=== PATIENT | male | born 1955 | race African-American/Black ===

== ENCOUNTER 2020-03-13 15:39 | Emergency (ER) | payer BC, SELFPAY ==
--- NOTE | ~2020-03-13 | XR_ITS ---
EXAMINATION: XR chest 1V portable INDICATION: Cough TECHNIQUE: Portable AP chest at 1612 hours COMPARISON: 06/05/2017 FINDINGS: The lungs are free of acute opacities. There is no pleural effusion or pneumothorax. The ca rdiomediastinal silhouette is normal. A healed fracture of the left humerus is noted. IMPRESSION: 1. No acute cardiopulmonary abnormality. Reviewed, dictated and finalized at location A.
[2020-03-13 15:50] VITALS: BP 132/81; PULSE 104; RESP 18; TEMP 36.9; O2SAT 100
--- NOTE | 2020-03-13 16:00 | ED.GENADULT ---
HPI - General Adult General Chief complaint: Fever Stated complaint: Fever Time Seen by Provider: 03/13/20 15:42 Source: patient History of Present Illness HPI narrative: Patient is 64 y/o male complaining of moderate chills today. There is no alleviating or exacerbating factor. He states that he attempted to check his temp, but the thermometer was old and he is not sure whether the reading was reliable. He is not sure whether he has fever. He feels not well in general today. He denies any pain. He has some chronic cough, which he attributed to smoking. He also has some nausea and and diarrhea, but no vomiting. He admits that he has been drink 1 pint of Tequila daily and his last drink was yesterday. Related Data Allergies Allergy/AdvReac Type Severity Reaction Status Date / Time No Known Allergies Allergy Verified 03/13/20 15:54 Review of Systems Constitutional: Constitutional: Reports chills, Denies headache(s), Reports malaise and Denies weakness Eyes: Eyes: Denies blurry vision ENT: Denies headache(s) and Denies neck pain Cardiovascular: Cardiovascular: Denies chest pain and Denies dyspnea Respiratory: Respiratory: Reports cough and Denies dyspnea Gastrointestinal: Gastrointestinal: Denies abdominal pain, Reports diarrhea, Reports nausea and Denies vomiting Genitourinary: Genitourinary: Denies hematuria and Denies dysuria Musculoskeletal: Musculoskeletal: Denies back pain and Denies neck pain Neurologic: Denies headache(s) and Denies weakness PMF Family History Family History Other Family history of lung cancer Social History Social History Smoking status: Heavy tobacco smoker Alcohol intake: current Exam Const: General: no acute distress and well developed Orientation/consciousness: oriented to person, oriented to place, oriented to time and patient oriented x3 HENMT: Head: normocephalic Ears: external ears normal General nose exam: Normal external nose present Eyes: General: appearance normal, both eyes and all related structures Conjunctivae: conjunctivae normal Neck: Neck: normal visual inspection and full ROM Chest: Chest palpation & inspection: normal inspection of the chest and no tenderness Resp: Effort & Inspection: normal respiratory effort Auscultation: clear to auscultation bilaterally Cardio: Rate: regular rate Rhythm: regular rhythm GI: GI Palp: No abdominal tenderness and Yes Soft to palpation Skin: General skin exam: normal color and turgor normal Neuro: General: oriented to person, oriented to place, oriented to time and patient oriented x3 Cognition (Neuro): normal cognition Extrem: General: normal to inspection, full ROM and no pedal edema Psych: Appearance: grossly normal Mental Status: mental status grossly normal Affect: normal affect Course Vital Signs Vital signs: Vital Signs Temperature 36.9 C 03/13/20 15:50 Pulse Rate 104 H 03/13/20 15:50 Respiratory Rate 18 03/13/20 15:50 Blood Pressure 132/81 03/13/20 15:50 Pulse Oximetry 100 03/13/20 15:50 Temperature 36.9 C 03/13/20 15:50 Pulse Rate 104 H 03/13/20 15:50 Respiratory Rate 18 03/13/20 15:50 Blood Pressure 132/81 03/13/20 15:50 Pulse Oximetry 100 03/13/20 15:50 Medical Decision Making Vital Signs Vital Signs: Vital Signs Temperature 36.9 C 03/13/20 15:50 Pulse Rate 104 H 03/13/20 15:50 Respiratory Rate 18 03/13/20 15:50 Blood Pressure 132/81 03/13/20 15:50 Pulse Oximetry 100 03/13/20 15:50 Temperature 36.9 C 03/13/20 15:50 Pulse Rate 104 H 03/13/20 15:50 Respiratory Rate 18 03/13/20 15:50 Blood Pressure 132/81 03/13/20 15:50 Pulse Oximetry 100 03/13/20 15:50 Lab Data Result diagrams: 03/13/20 15:59 03/13/20 15:59 Labs: Lab Results 03/13/20 03/13/20 03/13/20 Range/Units 15:5
[2020-03-13 16:06] LABS: Basophils Percent Auto 0.5 % (0.2-1.2); Eosinophils Percent Auto 0.2 % (0-4.4); Hematocrit 43.5 % (42.0-52.0); Immature Granulocyte Absolute 0.03 K/mm3 (0.00-0.031); Immature Granulocyte Percent A 0.5 % (0-0.5); Lymphocytes Absolute Auto 1.05 K/mm3 (0.9-3.2); Lymphocytes Percent Auto 18.8 % (18.3-44.2); Mean Corpuscular HGB Conc 34.5 g/dl (32-36); Mean Corpuscular Hemoglobin 30.9 pg (26-34); Mean Corpuscular Volume 89.7 fl (80-100); Mean Platelet Volume 8.9 fl (7.4-10.4); Monocytes Absolute Auto 0.7 K/mm3 (0.1-0.6); Monocytes Percent Auto 13.1 % (2.6-8.5); Neutrophils Absolute Auto 3.7 K/mm3 (1.3-6.7); Neutrophils Percent Auto 66.9 % (45.5-73.1); Platelet Count Result 159 k/mm3 (150-375); Red Blood Count 4.85 M/mm3 (4.6-6.20); Red Cell Distribution Width 15.6 % (11.5-14.5); White Blood Count 5.6 K/mm3 (4.5-10.0)
[2020-03-13 16:17] LABS: Alanine Aminotransferase 52 U/L (4-50); Albumin Level 4.5 g/dL (3.5-5.1); Alkaline Phosphatase 114 U/L (38-126); Anion Gap 8 mmol/L (8-16); Aspartate Amino Transferase 91 U/L (17-59); Bilirubin,Total 1.2 mg/dL (0.2-1.3); Blood Urea Nitrogen 8 mg/dL (9-20); Calcium 9.3 mg/dL (8.4-10.2); Carbon Dioxide 32 mmol/L (22-30); Chloride 99 mmol/L (98-107); Estimated CRCL calculation 116 ml/min; Estimated Glomerular Filt Rate > 60; Glucose 119 mg/dL (75-110); Lipase 68 U/L (23-300); Sodium 139 mmol/L (137-145)
[2020-03-13 16:19] LABS: Ethanol < 10 mg/dL (<10)
[2020-03-13] MEDS: chlordiazePOXIDE (*CRX) 25 MG CAPSULE PO (17:18)
[2020-03-13 17:35] LABS: Add Urine Microscopic? YES; Appearance Urine Clear (Clear); Bacteria Urine Trace /hpf; Bilirubin Urine Negative (Negative); Blood Urine Negative (Negative); Color Urine Yellow (Yellow); Glucose Urine UA Negative (Negative); Ketones Urine 1+ mg/dL (Negative); Leukocyte Esterase Ur Negative LEU/UL (Negative); Mucus Urine Heavy /lpf; Nitrate Urine Negative (Negative); Protein Urine 1+ mg/dL (Negative); RBC Urine 0-2 /hpf (0-2); Specific Grav Ur 1.028 (1.001-1.035); Squamous Epithelial Cell Urine Rare /hpf (Few); WBC Urine 0-3 /hpf
[2020-03-14 13:47] LABS: SARS-CoV-2 RNA PCR Negative
== END 2020-03-13 17:31 | disposition home or self-care (01) ==
PROVIDERS: Emergency Provider Emergency Medicine
DX: F10.239 Alcohol dependence with withdrawal, unspecified (principal); F17.210 Nicotine dependence, cigarettes, uncomplicated; Z20.828 Contact with and (suspected) exposure to other viral communicable diseases
CPT/HCPCS: 36415; 71045; 80053; 80307; 81001; 83690; 85025; 87635; 99283; A9270; C9803; U0003

== ENCOUNTER 2023-03-18 14:44 | Emergency (ER) | payer MEDICARE, SELFPAY ==
--- NOTE | ~2023-03-18 | XR_ITS ---
EXAM: XR shoulder LT min 2V DATE: 03/18/2023 15:05 HISTORY: FELL ONTO LEFT SHOULDER X 1 MONTH AGO . COMPARISON: None available. FINDINGS: Normal mineralization. Old proximal left humeral fracture healed in mild deformity. No acu te fracture or dislocation. No lytic or blastic lesion. Mild degenerative AC joint and glenohumeral j oint change. Subacromial narrowing. No erosion or periosteal change. Soft tissues within normal limit s. IMPRESSION: No acute osseous finding in the left shoulder. Reviewed, dictated and finalized at location K.
[2023-03-18 14:47] VITALS: BP 135/74; PULSE 72; RESP 16; TEMP 36.2; O2SAT 99
--- NOTE | 2023-03-18 15:16 | ED.UPPEXIN ---
HPI - Extremity Injury (Upper) General Chief Complaint: Extremity Injury, Upper Stated Complaint: left shoulder injury Time Seen by Provider: 03/18/23 14:56 History of Present Illness HPI narrative: 67-year-old male presents to the emergency room for evaluation of left shoulder pain. Patient states 3 weeks ago he was carrying groceries up the stairs, when he got to the last stair he pivoted and ended up falling landing directly on his left shoulder. Patient states the pain is worse with movement. Denies any numbness or tingling distal to the injury. Patient states has been taking inxi-rpp-[id number] Tylenol and ibuprofen with no improvement of his symptoms. Reports weakness in the left arm. Related Data Allergies Allergy/AdvReac Type Severity Reaction Status Date / Time No Known Allergies Allergy Verified 03/13/20 15:54 Review of Systems Review of Systems: CONSTITUTIONAL: Denies fever, chills, or sweats. EYES: Denies visual changes, redness, or discharge. ENT: Denies rhinorrhea, congestion, sore throat, or otalgia. CARDIOVASCULAR: Denies chest pain, palpitations, or edema. RESPIRATORY: Denies cough or dyspnea. GASTROINTESTINAL: Denies abdominal pain, nausea, vomiting, or diarrhea. GENITOURINARY: Denies dysuria or hematuria. SKIN: Denies rash or itching. MUSCULOSKELETAL: Denies back pain, joint pain, or myalgia. NEUROLOGIC: Denies headache, numbness, dizziness, or weakness. PSYCHIATRIC: Denies anxiety or depression. [facility] Family History Family History Other Family history of lung cancer Social History Social History Smoking status: Heavy tobacco smoker Alcohol intake: current Exam Narrative: GENERAL: Well-appearing, well-nourished, no physical limitations, and in no acute distress. HEAD: Normocephalic, atraumatic. EYES: Conjunctivae normal, PERRLA and EOMI. CHEST: Clear to auscultation. No respiratory distress. No wheezes rales or rhonchi. HEART: Regular rate and rhythm. No murmur heard. Normal peripheral pulses. EXTREMITIES: Left shoulder: +TTP to supraspinatus, + empty beer can test, + teres minor test, + drop arm test, pain with abduction, horizontal abduction/adduction, and flexion SKIN: Warm, dry, no rash. No noted wounds NEURO: No focal deficits. Alert and oriented x3. MAEW. CN's II-XI intact bilaterally, normal gait PSYCH: Cooperative. Normal mood and affect. Course Vital Signs Vital signs: Vital Signs Temperature 36.2 C L 03/18/23 14:47 Pulse Rate 72 03/18/23 14:47 Respiratory Rate 16 03/18/23 14:47 Blood Pressure 135/74 03/18/23 14:47 Pulse Oximetry 99 03/18/23 14:47 Temperature 36.2 C L 03/18/23 14:47 Pulse Rate 72 03/18/23 14:47 Respiratory Rate 16 03/18/23 14:47 Blood Pressure 135/74 03/18/23 14:47 Pulse Oximetry 99 03/18/23 14:47 Discharge Plan Discharge Clinical Impression: Injury of left rotator cuff Patient Disposition: Home, Self-Care Condition: Stable Instructions: Antibiotic Form, Rotator Cuff Injury (ED) Prescriptions: New naproxen 500 mg tablet 500 mg PO BID Qty: 30 0RF No Action chlordiazepoxide HCl 25 mg capsule 25 mg PO Q8H PRN (Reason: alcohol withdrawal) Qty: 20 0RF Follow-up/Referrals: Hugo Loera MD [Physician] - UNKNOWN,DOCTOR [Primary Care Provider] - Time of Disposition: 15:25
[2023-03-18 15:36] VITALS: BP 126/83; PULSE 67; RESP 15; O2SAT 100
== END 2023-03-18 15:39 | disposition home or self-care (01) ==
PROVIDERS: Emergency Provider Nurse Practitioner Family
DX: S46.002A Unspecified injury of muscle(s) and tendon(s) of the rotator cuff of left shoulder, initial encounter (principal); W19.XXXA Unspecified fall, initial encounter
CPT/HCPCS: 73030; 99283; A4565

== ENCOUNTER → 2023-03-30 07:08 | Outpatient (CLI) | payer MEDICARE, SELFPAY ==
--- NOTE | ~2023-03-30 | MR_ITS ---
MRI of the left shoulder Technique: Axial proton-density fat-sat images, coronal proton density fat-sat and T2 fat-sat images, and sagittal T1-weighted and T2 fat-sat images were acquired. Clinical History: Injury Findings: There is qmox-wz-[id number] AC joint degenerative change. Small subacromial spur present. Cor acoclavicular, coracoacromial, and coracohumeral ligaments are intact. There is full-thickness tear of the anterior to central portion of the distal supraspinatus tendon, w ith fluid-filled gap measuring approximately 2.2 x 1.9 cm in extent. Infraspinatus tendon is intact, without partial or full-thickness tear. There is apparent complete tearing of the transverse ligament fibers of the distal subscapularis tendon, with associated medial dislocation of the biceps tendon f rom the bicipital groove. No labral tear identified. Inferior glenohumeral ligament demonstrates probable thickening and increased signal. No significant degenerative change or effusion of the glenohumeral joint. There is fluid distention of the subacromi al/subdeltoid bursa, possibly related to underlying rotator cuff tear. No muscle atrophy or edema kemal ntified. IMPRESSION: 2.2 x 1.9 cm full-thickness tear involving the anterior to central portion of the distal supraspinatu s tendon. Complete tear of the transverse ligament fibers of the distal subscapularis tendon, with associated m edial dislocation of the biceps tendon from the bicipital groove. Questionable adhesive capsulitis. Correlate clinically. Wdba-ki-elbqkxxe AC joint degenerative change. Reviewed, dictated and finalized at location . R ENTRY REPRESENTATIVE IMPRESSION: 2.2 x 1.9 cm full-thickness tear involving the anterior to central portion of t he distal supraspinatus tendon. Complete tear of the transverse ligament fibers of the distal subscapularis ten don, with associated medial dislocation of the biceps tendon from the bicipital groove. Questionable adhesive capsulitis. Correlate clinically. Zuzv-if-jjwezwcj AC joint degenerative change.
== END ==
PROVIDERS: PCP Orthopaedic Surgery; Visit Provider Orthopaedic Surgery
DX: S46.812A Strain of other muscles, fascia and tendons at shoulder and upper arm level, left arm, initial encounter (principal); X58.XXXA Exposure to other specified factors, initial encounter
CPT/HCPCS: 73221

== ENCOUNTER 2023-04-08 11:30 | Outpatient (CLI) | payer MEDICARE, SELFPAY ==
[2023-04-08 12:23] LABS: Basophils Absolute Auto 0.1 K/mm3 (0.0-0.1); Basophils Percent Auto 0.8 % (0.2-1.2); Eosinophils Absolute Auto 0.1 K/mm3 (0-0.3); Eosinophils Percent Auto 1.6 % (0-4.4); Hematocrit 49.3 % (42.0-52.0); Hemoglobin 16.3 g/dL (14.0-18.0); Immature Granulocyte Absolute 0.04 K/mm3 (0.00-0.031); Immature Granulocyte Percent A 0.6 % (0-0.5); Lymphocytes Absolute Auto 1.76 K/mm3 (0.9-3.2); Lymphocytes Percent Auto 27.9 % (18.3-44.2); Mean Corpuscular HGB Conc 33.1 g/dl (32-36); Mean Corpuscular Hemoglobin 30.6 pg (26-34); Mean Corpuscular Volume 92.7 fl (80-100); Mean Platelet Volume 10.1 fl (7.4-10.4); Monocytes Absolute Auto 0.7 K/mm3 (0.1-0.6); Monocytes Percent Auto 10.8 % (2.6-8.5); Neutrophils Absolute Auto 3.7 K/mm3 (1.3-6.7); Neutrophils Percent Auto 58.3 % (45.5-73.1); Platelet Count Result 207 k/mm3 (150-375); Red Blood Count 5.32 M/mm3 (4.6-6.20); Red Cell Distribution Width 12.3 % (11.5-14.5); White Blood Count 6.3 K/mm3 (4.5-10.0)
[2023-04-08 12:35] LABS: Alanine Aminotransferase 19 U/L (6-50); Alkaline Phosphatase 70 U/L (38-126); Anion Gap 15 mmol/L (8-16); Aspartate Amino Transferase 28 U/L (17-59); Bilirubin,Total 1.1 mg/dL (0.2-1.3); Blood Urea Nitrogen 11 mg/dL (9-20); Calcium 9.8 mg/dL (8.4-10.2); Carbon Dioxide 26 mmol/L (22-30); Chloride 101 mmol/L (98-107); Cholesterol 211 mg/dL (0-200); Estimated Glomerular Filt Rate > 60; Glucose 88 mg/dL (65-110); HDL Direct 50 mg/dL; Potassium 3.9 mmol/L (3.4-5.0); Sodium 142 mmol/L (137-145); Triglycerides 82 mg/dL (<150)
[2023-04-08 12:46] LABS: LDL Cholesterol Direct 115 mg/dL
[2023-04-08 12:52] LABS: Creatinine Urine 107.3 mg/dL
[2023-04-08 12:53] LABS: Free T4 Free Thyroxine 1.34 ng/mL (0.78-2.19)
[2023-04-08 12:58] LABS: MALB Creatinine Ratio < 5.6 mg/g (0-30); Microalbumin Urine Random < 6.0 mg/L (0-16.7)
[2023-04-08 13:05] LABS: Prostate Specific Antigen 2.2 ng/mL (< OR = 4.0); Total Triiodothyronine (T3) 1.44 NG/ML (0.97-1.69)
== END 2023-04-08 11:31 | disposition home or self-care (01) ==
PROVIDERS: PCP Family Medicine; Visit Provider Nurse Practitioner Adult Health
DX: I10 Essential (primary) hypertension (principal); R53.1 Weakness; R53.83 Other fatigue; R78.5 Finding of other psychotropic drug in blood; Z12.5 Encounter for screening for malignant neoplasm of prostate
CPT/HCPCS: 36415; 80053; 80061; 82043; 84153; 84439; 84443; 84480; 85025; G0103

== ENCOUNTER 2023-05-11 12:17 | Outpatient (CLI) | payer MEDICARE, SELFPAY ==
--- NOTE | 2023-05-11 12:46 | ECG_ITS ---
Measurements Intervals [place] Rate: 64 P: 74 ME: 149 QRS: -18 QRSD: 81 T: 42 QT: 378 QTc: 393 Interpretive Statements SINUS RHYTHM WITH PREMATURE ATRIAL CONTRACTIONS LOW-VOLTAGE QRS IN LIMB LEADS BASELINE ARTIFACT NO PREVIOUS ECG AVAILABLE FOR COMPARISON Electronically Signed On 05-11-2023 17:22:53 [employer] SAL[employer] PERSON by Mike Pacheco M.D.
== END 2023-05-11 12:18 | disposition home or self-care (01) ==
LOC: ANHSURGERY 12:22
PROVIDERS: PCP Family Medicine; Visit Provider Orthopaedic Surgery
DX: Z01.818 Encounter for other preprocedural examination (principal); F17.200 Nicotine dependence, unspecified, uncomplicated; R93.1 Abnormal findings on diagnostic imaging of heart and coronary circulation
CPT/HCPCS: 93005

== ENCOUNTER 2023-05-15 02:49 | Day surgery (SDC) | payer MEDICARE, SELFPAY ==
--- NOTE | 2023-05-08 11:28 | PC.NURSE ---
Report to the Outpatient Waiting Room, entrance under the green pavilion located off [facility], at [id number] on date __05/15/23 . Planned Procedure Time: _729 . Time changes happen often and if your time is changed the preop area will call you the afternoon before. - You and your visitor will be asked to self-screen and do not enter if you have any COVID symptoms. - A mask is optional within the hospital at this time. Patients may have clear liquids (water, carbonated beverages, clear teas, apple juice) until 3 hours prior to surgery( 4:30 AM ) with a maximum of 20 ounces. - No food from midnight until time of surgery - Infants may have breast milk until 4 hours before surgery, infant formula 6 hours prior to surgery. - Children will be allowed to drink immediately following surgery. If applicable, please bring a bottle or sippy cup to assist with drinking. Juice, water, soda, and popsicles are readily available. For infants on formula, please bring formula the day of surgery. Pacifiers are allowed. Take the following medications with a SIP of water the morning of surgery: ____NONE DO NOT STOP ANY OF YOUR OTHER PRESCRIPTION MEDICATIONS PRIOR TO SURGERY ?EXCEPT THE FOLLOWING Medications to discontinue per physician NONE Please no make-up, nail new zealander, hairspray, perfume, deodorant, or body powder the day of surgery. No jewelry (including any body piercings) or valuables the day of surgery, leave them at home. Please take a shower or bath the night before, or the morning of, surgery with an antibacterial soap. Wear comfortable, loose fitting clothing. Children are encouraged to wear pajamas. - Jewelry must be removed prior to entering the operating room. Rings and piercings that are not removed may be cut off. - The hospital will not accept responsibility for valuables. - Please leave all valuables, including medications, at home the day of surgery. If you are going home after surgery, a licensed truck driver rubbish collector must drive you home. - NO public transportation without another adult if you receive anesthesia. - We recommend that an adult stay with you for 24 hours following discharge. - We also recommend that you do not drive, make important decision, drink alcoholic beverages, or take any drugs that were not prescribed by your health care provider for at least 24 hours after your discharge time. Follow any additional instructions given to you from your surgeon. If you or anyone in your household have experienced Covid symptoms in the past week, please notify your surgeon or the nurse liaison at the phone number below for possible testing. Telephone instructions given to ___PATIENT and asked if any additional questions and then verbalized understanding. Patient advised to call surgeon office or pre surgery nurse liaison [phone] if any additional questions.
[2023-05-08 11:33] VITALS: BMI 26.2
[2023-05-15] VITALS (7 sets, daily range): BP systolic 100–119; BP diastolic 68–82; PULSE 55–88; RESP 10–16; TEMP 35.9–36.4; O2SAT 97–100
[2023-05-15] MEDS: ACETAMINOPHEN 500 MG TABLET 1000 MG PO (06:50)
[2023-05-15] MEDS: LACTATED RINGERS 1,000 ML 30 ML IV CONT ×2 (06:50→09:21)
[2023-05-15] MEDS: CELECOXIB 200 MG CAPSULE PO (06:50)
--- NOTE | 2023-05-15 07:04 | P.PNAN_ITS ---
Anes - Initial Pre Proc Eval Procedure: Operation Date: 05/15/23 07:30 Proposed Procedures p Left Rotator Cuff Repair - Hugo Loera MD Date/Time: 05/15/23 07:04 Surgeon: Hugo Loera MD Pre Op Diagnosis: Lt Rot Cuff Tear Patient Data Age: 68 Gender: M Height: 1.78 m Weight: 82.1 kg Last Vital Signs Temp 36.4 C L 05/15/23 06:50 Pulse 72 05/15/23 06:50 Resp 14 05/15/23 06:50 BP 117/76 05/15/23 06:50 Pulse Ox 97 05/15/23 06:50 O2 Del Method Room Air 05/15/23 06:50 Allergies Allergy/AdvReac Type Severity Reaction Status Date / Time No Known Allergies Allergy Verified 05/15/23 07:03 Home Medications Medication Instructions Recorded Confirmed Type benzoyl peroxide 5 % topical gel 1 applic topical DAILY #42.5 grams 04/27/23 05/08/23 Rx chlorhexidine gluconate 4 % 1 applic topical ONCE #237 mL 04/27/23 05/08/23 Rx topical liquid (Hibiclens) clindamycin phosphate 1 % topical 1 applic topical DAILY #30 grams 04/27/23 05/08/23 Rx gel Patient hx anesthesia problems: none Family hx anesthesia problems: none Results Review: All pre-operative results and documents have been reviewed as part of the pre- operative evaluation. [facility] Past Medical History Medical History Injury of left shoulder Rotator cuff tear, left Smoking Family History Family History Other Family history of lung cancer Social History Social History Smoking packs per day: 1 Smoking cigarettes per day: 20.0 Years smoked: 40 Smoking pack-years: 40.00 Smoking status: Current every day smoker Tobacco type: cigarettes Alcohol intake: current Substance use: current Substance use type: marijuana Last use: 05/07/23 Living arrangements: alone Gender identity (if verbalized by the patient): Male Spiritual care concerns: No Anes - Eval Final PreProcedure Day of Procedure 05/15/23 07:04 Patient weight: normal Heart: regular rate and rhythm Lungs: decreased breath sounds Airway: Mallampati scale class II Neurological: alert and oriented Last oral intake: >/= 8 hours ASA classification: III Emergent: no Anesthetic plan: proceed Anesthesia type and monitoring: general ETT and standard monitoring Results Review: All pre-operative results and documents have been reviewed as part of the pre- operative evaluation. Informed Consent: The patient's anesthetic plan and its attendant risks and benefits were discussed with the patient/family/POA. Questions were solicited and answers provided to the satisfaction of the patient/family/POA.
--- NOTE | 2023-05-15 07:15 | WPDHPUPDATE1 ---
History and Physical Update Update Date/Time: 05/15/23 07:15 History and Physical has been reviewed, including an updated exam of the patient. There are NO changes in the patient's condition. Risks, benefits, and alternatives have been discussed and questions answered. Patient agrees to proceed with procedure.
[2023-05-15] MEDS: ceFAZolin 2 GM/D5W 50 ML 2 GM/50 ML BAG IVPB (07:34)
--- NOTE | 2023-05-15 07:46 | WPDANESPNB ---
Anes - Peripheral Nerve Block Date/Time: 05/15/23 07:46 I have discussed with the patient/family/POA the placement of a peripheral nerve block for post-operative pain management, including associated risks, benefits, complications, and side effects. Alternative methods of post-operative analgesia were detailed. Questions were solicited and answers provided to the satisfaction of the patient/family/POA. Time-Out: A pre-procedural Time-Out was completed immediately before starting the procedure and confirmed: Patient Identification, Site, Procedure, Patient Position and the Availability of Requisite Equipment. Clinical Indications: Acute post-operative pain management requested by the operative surgeon. Nerve Block Insertion Note Anes-nerve block: interscalene Patient position: supine Skin prep: chlorhexidine Needle: 22 gauge, stimulating, insulated echogenic needle. Needle length: 50 mm Technique: nerve stimulation lost at (mA) (0.3) and ultrasound Technique comment: mid2mg [id number] Injectate: bupivacaine 0.5% with epi 5 mcg/ml (30ml no epi) and dexamethasone (mg) Observations: tolerated well Complications: none Procedure start time:: 724 Procedure end time:: 731
--- NOTE | 2023-05-15 09:11 | P.OP_ITS ---
Procedure Note - Detailed Date of Procedure 05/15/23 Pre-op Diagnosis Lt Rot Cuff Tear Post-op Diagnosis Same Procedure Performed REPAIR LEFT ROTATOR CUFF Surgeon Hugo Loera MD Anesthesia General Description of Procedure THE PATIENT WAS TAKEN TO THE OPERATING ROOM AND THEN INTUBATED AND PLACED IN THE BEACH CHAIR POSITION. THE LEFT UPPER EXTREMITY WAS PREPPED AND DRAPED IN THE NORMAL STERILE FASHION. AN INCISION WAS MADE IN BETWEEN THE STEPHIE-LATERAL ACROMION AND THE AC JOINT. THE FASCIA WAS IDENTIFIED. NEXT A MINI OPEN INCISION WAS MADE THROUGH THE DELTOID MUSCLE EXPOSING THE SUBACROMIAL SPACE. A LIMITED ACROMIOPLASTY WAS PREFORMED. THE ROTATOR CUFF WAS IDENTIFIED. THERE WAS A FULL THICKNESS TEAR. IT MEASURED APPROXIMATELY 2 CM X 2 CM. THE BICEPS TENDON WAS STABLE. THE GREATER TUBEROSITY WAS DEBRIDED TO BLEEDING BONE. 2 ARTHREX 5.5 SUTURE ANCHORS WERE PLACED IN TO GOOD BONE AND HAD VERY GOOD BITES. MADAI-JOLENE TYPE REPAIRS WERE DONE TO THE ROTATOR CUFF AND THERE WAS GOOD APPROXIMATION TO THE GREATER TUBEROSITY. THE REPAIR WAS EXCELLENT. THERE WAS NO IMPINGEMENT ON THE REPAIR FROM THE ACROMION WITH RANGE OF MOTION. THE WOUND WAS IRRIGATED WITH COPIOUS AMOUNTS OF ANTIBIOTIC SOLUTION. THE DELTOID MUSCLE WAS REPAIRED WITH #2 FIBER WIRE AND 0 VICRYL SUTURE. THE SUBCUTANEOUS LAYER WAS APPROXIMATED WITH 2- 0 VICRYL. THE SKIN WAS APPROXIMATED WITH 3-0 QUIL AND DERMABOND. STERILE DRESSING WAS APPLIED. PATIENT WAS EXTUBATED. Estimated Blood Loss 20 Complications No immediate complications Condition Stable Disposition PACU
== END 2023-05-15 11:10 | disposition home or self-care (01) ==
PROVIDERS: PCP Family Medicine; Visit Provider Orthopaedic Surgery
PROC: (CPT 23420; principal; 2023-05-15 07:30)
DX: S46.012A Strain of muscle(s) and tendon(s) of the rotator cuff of left shoulder, initial encounter (principal); W10.9XXA Fall (on) (from) unspecified stairs and steps, initial encounter; G89.18 Other acute postprocedural pain; F17.210 Nicotine dependence, cigarettes, uncomplicated; F12.90 Cannabis use, unspecified, uncomplicated
CPT/HCPCS: 23410; 64415; A9270; C1713; J0690; J1100; J2250; J2405; J2704; J3010; J7120

== ENCOUNTER 2023-08-27 13:30 | Outpatient (RCR) | payer MEDICARE, SELFPAY ==
[2023-06-02 13:10] VITALS: BP_SYST 75
--- NOTE | 2023-06-02 15:36 | OPREHPOC ---
Outpatient Therapy Plan of Care This is a Multidisciplinary Plan of Care that may contain components documented by all disciplines (PT, OT, and ST.) PT Problem 1 PT Problem #1 Knowledge Deficit PT Goal 1 Goal Pt to be IND with issued HEP Target Visit 16 PT Problem 2 PT Problem #2 Pain PT Goal 1 Goal Pt to report pain no greater than 3/10 in the last week. Target Visit 16 PT Goal 2 Goal Pt to report 75% improvement in overall symptoms. Target Visit 16 PT Problem 3 PT Problem #3 Impaired Range of Motion PT Goal 1 Goal Pt to demonstrate 120 deg of active shoulder flexion, when protocol allows Target Visit 16 PT Goal 2 Goal Pt to demonstrate 120 deg of active shoulder abduction, when protocol allows PT Problem 4 PT Problem #4 Impaired Strength PT Goal 1 Goal Pt to be able to lift 5lb overhead, when protocol allows. Target Visit 16 PT Goal 2 Goal Pt to demonstrate BUE strength grossly 4+/5 Target Visit 16
--- NOTE | 2023-06-02 15:37 | PTOPEVAL1 ---
Assessment and note entered by Geraldine Sawant, PT, DPT Evaluation Information Assessment Status Evaluation Diagnosis L RTC repair Onset 05/15/23 Subjective Information Pt had a L RTC repair on 05/15/23. Pt states he has not had to take any medication in the last week or so. He states it feels stiff but does not cause pain unless he moves it too much. Reported Pain Level Pain Score 1: Self Report Assessment PT Clinical Summary Grabiel presents to therapy today for his initial evaluation following a L RTC repair on 05/15/23. Today he reports well controlled pain, he has been weaning the use of his sling. He demonstrates passive flexion to 85 deg, scaption to 75 deg, and ext rot to 32 deg. Skilled therapy services are indicated to progress ROM and functional strength when surgical protocol allows. Plan of Care Interventions Electrical Stimulation,Hot Pack/Cold Pack,Manual Therapy,Neuro Re-education,Patient/Caregiver Educati,Therapeutic Activities,Therapeutic Exercise PT Services Indicated Yes Treatment Frequency and 2x/wk for 16 visits Duration These treatments will address the objective and functional deficits as defined above. The patient will be advanced safely and appropriately in order for the patient to progress towards his/her prior level of function. Additional exercises will be introduced and as well as a comprehensive home exercise program upon discharge, if needed, ?to ensure carryover of functional gains achieved in the clinic. This treatment plan has been reviewed and agreement upon by the patient.
[2023-07-02 12:37] VITALS: BP_SYST 105
--- NOTE | 2023-07-02 13:43 | PTOPPROGNS ---
Assessment and note entered by Geraldine Sawant, PT, DPT Evaluation Information Assessment Status Progress Diagnosis L RTC repair Onset 05/15/23 Subjective Information Pt states overall he is doing well. He states he has been working on light tasks around his house without difficulty or too much soreness afterwards . He reports good compliance with his HEP. He reports a mild increase in soreness and stiffness after exercise and activity. Assessment PT Clinical Summary Grabiel presents to therapy today for his progress report following 9 visits of skilled therapy following a L RTC repair on 05/15/23. Today he demonstrates active flexion to 55 deg, scaption to 45 deg. He demonstrates significance ROM, strength , and functional deficits when compared to his uninvolved side. Continuation of skilled therapy services are indicated to progress ROM and functional strength, progress through protocol, and to return to PLOF. Plan of Care Interventions Electrical Stimulation,Hot Pack/Cold Pack,Manual Therapy,Neuro Re-education,Patient/Caregiver Educati,Therapeutic Activities,Therapeutic Exercise PT Services Indicated Yes Treatment Frequency and 2x/wk for 16 visits, continue per POC Duration These treatments will address the objective and functional deficits as defined above. The patient will be advanced safely and appropriately in order for the patient to progress towards his/her prior level of function. Additional exercises will be introduced and as well as a comprehensive home exercise program upon discharge, if needed, ?to ensure carryover of functional gains achieved in the clinic. This treatment plan has been reviewed and agreement upon by the patient.
[2023-07-27 12:30] VITALS: BP_SYST 105
--- NOTE | 2023-07-27 13:27 | PTOPPROG ---
Assessment and note entered by Geraldine Sawant, PT, DPT Evaluation Information Assessment Status Progress Diagnosis L RTC repair Onset 05/15/23 Subjective Information Pt states he followed up with his doctor today, he states he is pleased with his motion, he just needs more strength. Pt agrees his ROM is progressing well but overhead motions are limited d/t strength. Reports no pain most of the time. Assessment PT Clinical Summary Grabiel presents to therapy today for his progress report following 16 visits of skilled therapy following a L RTC repair on 05/15/23. Today he demonstrates active flexion to 90 deg, scaption to 62 deg. His strength and ROM is progressing but still decreased significantly when compared to his uninvolved side. Continuation of skilled therapy services are indicated to progress ROM and functional strength, progress through protocol, and to return to PLOF. Plan of Care Interventions Electrical Stimulation,Hot Pack/Cold Pack,Manual Therapy,Neuro Re-education,Patient/Caregiver Educati,Therapeutic Activities,Therapeutic Exercise PT Services Indicated Yes Treatment Frequency and 2x/wk for 8 visits Duration These treatments will address the objective and functional deficits as defined above. The patient will be advanced safely and appropriately in order for the patient to progress towards his/her prior level of function. Additional exercises will be introduced and as well as a comprehensive home exercise program upon discharge, if needed, ?to ensure carryover of functional gains achieved in the clinic. This treatment plan has been reviewed and agreement upon by the patient.
[2023-08-19 13:32] VITALS: BP_SYST 105
--- NOTE | 2023-08-19 15:09 | PTOPEVAL1 ---
Assessment and note entered by Geraldine Sawant, PT, DPT Evaluation Information Assessment Status Progress Diagnosis L RTC repair Onset 05/15/23 Subjective Information Pt states his strength and ROM feels like it is getting a lot better. He states he is able to do more tasks around his home. He states pain is also better to where he can sleep on his L side at night. Reported Pain Level Pain Score 1: Self Report Assessment PT Clinical Summary Grabiel presents to therapy today for his progress report following 23 visits of skilled therapy following a L RTC repair on 05/15/23. Today he demonstrates improved active ROM, flexion to 105 deg and abduction to 70 deg. His passive ROM has remained stagnant for the last 2 months, therapist called and updated orthopedics office. Pts strength is progressing but strength and ROM continues to be very limited compared to his uninvolved side. Continuation of skilled therapy services are indicated to progress ROM and functional strength, progress through protocol, and to return to PLOF. Plan of Care Interventions Electrical Stimulation,Hot Pack/Cold Pack,Manual Therapy,Neuro Re-education,Patient/Caregiver Educati,Therapeutic Activities,Therapeutic Exercise PT Services Indicated Yes Treatment Frequency and 2x/wk for 8 visits Duration These treatments will address the objective and functional deficits as defined above. The patient will be advanced safely and appropriately in order for the patient to progress towards his/her prior level of function. Additional exercises will be introduced and as well as a comprehensive home exercise program upon discharge, if needed, ?to ensure carryover of functional gains achieved in the clinic. This treatment plan has been reviewed and agreement upon by the patient.
--- NOTE | 2023-08-24 16:48 | OPREHPOC ---
Outpatient Therapy Plan of Care This is a Multidisciplinary Plan of Care that may contain components documented by all disciplines (PT, OT, and ST.) PT Problem 1 PT Problem #1 Knowledge Deficit PT Goal 1 Goal Pt to be IND with issued HEP Target Visit 16 Progress Met PT Problem 2 PT Problem #2 Pain PT Goal 1 Goal Pt to report pain no greater than 3/10 in the last week. Target Visit 16 Progress Met PT Goal 2 Goal Pt to report 75% improvement in overall symptoms. Target Visit 16 Progress Met PT Problem 3 PT Problem #3 Impaired Range of Motion PT Goal 1 Goal Pt to demonstrate 120 deg of active shoulder flexion, when protocol allows Target Visit 16 Progress Not Met PT Goal 2 Goal Pt to demonstrate 120 deg of active shoulder abduction, when protocol allows Progress Not Met PT Problem 4 PT Problem #4 Impaired Strength PT Goal 1 Goal Pt to be able to lift 5lb overhead, when protocol allows. Target Visit 16 Progress Not Met PT Goal 2 Goal Pt to demonstrate BUE strength grossly 4+/5 Target Visit 16 Progress Not Met
--- NOTE | 2023-09-01 12:48 | PCPTNOTE ---
This treatment is being continued on visit number [id number]. Please see documentation on both accounts to view progress. Completed interventions, outcomes, and problems have been marked as Inactive to facilitate the copying of the Care plan routine for recurring accounts.
== END 2023-08-31 10:26 | disposition still patient (30) ==
LOC: ANHGOSHPT 13:30
PROVIDERS: PCP Family Medicine; Visit Provider Orthopaedic Surgery
DX: M75.102 Unspecified rotator cuff tear or rupture of left shoulder, not specified as traumatic (principal)
CPT/HCPCS: 97014; 97016; 97110; 97140; 97161; 97530; 97750; G0283

== ENCOUNTER 2023-11-18 13:15 | Outpatient (RCR) | payer MEDICARE, SELFPAY ==
--- NOTE | 2023-09-01 12:49 | PCPTNOTE ---
The treatment documented on this account is a continuation of the treatment documented on visit number [id number]. Please see documentation on both accounts to view progress. The Plan of Care has been transitioned and updated within the new V#. I have addressed and agree with the discipline specific Problems, Interventions, and Goals for the current certification period. Completed interventions, outcomes, and problems have been marked as Inactive to facilitate the copying of the Care plan routine for recurring accounts.
--- NOTE | 2023-09-03 08:27 | PCPTNOTE ---
Patient unable to be seen September 01 due to therapist out ill.
[2023-09-14 12:34] VITALS: BP_SYST 130
--- NOTE | 2023-09-14 13:21 | PTOPPROG ---
Assessment and note entered by Geraldine Sawant, PT, DPT Evaluation Information Assessment Status Progress Diagnosis L RTC repair 05/15/23 Subjective Information Pt states his shoulder has been feeling pretty good. He states he has been really focusing on trying to use his L arm more. Pt return to his surgeon on 09/17/23. Assessment PT Clinical Summary Grabiel presents to therapy today for his progress report following 30 visits of skilled therapy. He continues to make slow but consistent progress towards his therapy goals. His active shoulder flexion and abduction have not progressed to WFL, he is still lacking motion beyond ~130 deg actively and passively. He demonstrates good strength within his available range. Pt would like to follow up with referring provider prior to deciding to continue therapy or not. Plan of Care PT Services Indicated Yes Treatment Frequency and pending ortho follow up Duration These treatments will address the objective and functional deficits as defined above. The patient will be advanced safely and appropriately in order for the patient to progress towards his/her prior level of function. Additional exercises will be introduced and as well as a comprehensive home exercise program upon discharge, if needed, ?to ensure carryover of functional gains achieved in the clinic. This treatment plan has been reviewed and agreement upon by the patient.
[2023-10-27 13:46] VITALS: BP_SYST 132
--- NOTE | 2023-10-27 17:18 | PTOPPROG ---
Assessment and note entered by Luis Joya, PT Evaluation Information Assessment Status Progress Diagnosis L RTC repair 05/15/23 Subjective Information Patient reports that he has a follow up with Dr. Concepcion on 11/19/23. Reports that he feels he is making progress slowly but surely. Shoulder still feel stiff with activity and reach. Denies any pain at rest at this time. Still has occasional tingling but was better than it was prior to surgery. Assessment PT Clinical Summary Patient has seen slow but positive improvement in shoulder ROM at this time. He continues to have objective deficits in range of motion and has been pushed more towards independence at this time. We continue to see sufficient issues in flexion and abduction as his greatest deficit. Follows up with MD in 1 month and will continue to benefit from skilled therapy to address leading up to consultation to try and achieve maximal functional effect. Plan of Care PT Services Indicated Yes Treatment Frequency and 1x/week for 4 visits Duration These treatments will address the objective and functional deficits as defined above. The patient will be advanced safely and appropriately in order for the patient to progress towards his/her prior level of function. Additional exercises will be introduced and as well as a comprehensive home exercise program upon discharge, if needed, ?to ensure carryover of functional gains achieved in the clinic. This treatment plan has been reviewed and agreement upon by the patient.
--- NOTE | 2023-12-04 08:12 | PCPTNOTE ---
Patient contacted clinic stating that he is doing well overall and would like to be discharged. Please refer to last treatment note for discharge status.TO be discharged to [facility] at this time.
== END 2023-12-02 23:59 | disposition home or self-care (01) ==
LOC: ANHGOSHPT 13:15
PROVIDERS: PCP Family Medicine; Visit Provider Orthopaedic Surgery
DX: M75.102 Unspecified rotator cuff tear or rupture of left shoulder, not specified as traumatic (principal)
CPT/HCPCS: 97110; 97140; 97530

== ENCOUNTER 2025-02-01 14:37 | Outpatient (CLI) | payer MEDICARE, SELFPAY ==
--- NOTE | 2025-02-01 | ECG_ITS ---
Test Date: 2025-02-01 15:10:22 Measurements Intervals Commodore Rate: 58 P: 75 SC: 149 QRS: -18 QRSD: 85 T: 52 QT: 398 QTc: 393 Interpretive Statements SINUS BRADYCARDIA WITH OCCASIONAL SUPRAVENTRICULAR PREMATURE COMPLEXES LOW-VOLTAGE QRS BORDERLINE ECG No previous ECG available for comparison Electronically Signed On 02-01-2025 16:28:53 CDT by Laureano Merrill M.D.
== END 2025-02-01 14:38 | disposition home or self-care (01) ==
PROVIDERS: PCP Family Medicine; Visit Provider Nurse Practitioner Family
DX: R94.31 Abnormal electrocardiogram [ECG] [EKG] (principal); I49.9 Cardiac arrhythmia, unspecified
CPT/HCPCS: 93005